=== PATIENT | male | born 1970 | race Two or more races ===

== ENCOUNTER 2024-07-02 08:53 | Emergency (ER) | payer OTHER ==
[~2024-07-02] VITALS: Ht 172.7 cm; Wt 108.0 kg
[2024-07-02] MEDS ORDERED: HYDROCHLOROTHIA50 MG PO (09:05)
[2024-07-02] MEDS ORDERED: COZAAR100 MG PO (09:05)
[2024-07-02] MEDS ORDERED: BACLOFEN20 MG PO (09:06)
[2024-07-02] MEDS ORDERED: ORPHENADRINE CITRATE 100 MG TABLET PO STA (10:26)
[2024-07-02] MEDS ORDERED: KETOROLAC TROMETHAMINE 60 MG VIAL IM STA (10:27)
[2024-07-02] MEDS ORDERED: KETOROLAC TROMETHAMINE 60 MG VIAL IM ONE (10:34)
== END 2024-07-02 12:00 | disposition home or self-care (01) ==
LOC: ER 08:54
DX: R53.81 Other malaise (principal); M62.830 Muscle spasm of back; I10 Essential (primary) hypertension